=== PATIENT | male | born 1950 | race Caucasian/White ===

== ENCOUNTER 2024-11-27 06:40 | Day surgery (SDC) | payer BC ==
[2024-11-27] MEDS ORDERED: Propofol 200 MG/20 ML SDV IV ONE (06:41)
[2024-11-27] MEDS ORDERED: Lidocaine 1% 5 ML VIAL INJECT ONE (06:41)
[2024-11-27] MEDS ORDERED: Sodium Chloride 0.9% 10 ML Syringe FLUSH PRN (06:45)
[2024-11-27 07:21] VITALS: BP 139/79; PULSE 68
[2024-11-27] MEDS: Lactated Ringers 1,000 ML IV SCH (07:44)
[2024-11-27] MEDS: Simethicone Drops 40 MG/0.6 ML 30 ML Bottle ONE (08:05)
== END 2024-11-27 10:04 | disposition home or self-care (01) ==
LOC: FB.SDS 06:40
PROVIDERS: ATTEND Surgery
DX: Z12.11 Encounter for screening for malignant neoplasm of colon (principal); K57.30 Diverticulosis of large intestine without perforation or abscess without bleeding; Z86.0101 Personal history of adenomatous and serrated colon polyps; K42.9 Umbilical hernia without obstruction or gangrene
CPT/HCPCS: A9270-GY; J2704; J7120